=== PATIENT | male | born 2000 | race Caucasian/White ===

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

== ENCOUNTER 2021-10-09 00:56 | Emergency (ER) | payer OTHER, MEDICAID, SELFPAY ==
[2021-10-09] VITALS (8 sets, daily range): BP systolic 127–162; BP diastolic 74–95; PULSE 104–118; RESP 15–29; O2SAT 96–98; BMI 29.2
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
[2021-10-09] MEDS: HYDROmorphone 1 mg/mL INJ 1 mL IVP (01:22)
[2021-10-09 01:23] LABS: Basophils # 0.1 10^3/uL (0.0-0.1); Basophils % 0.8 %; Eosinophils # 0.3 10^3/uL (0.0-0.8); Eosinophils % 1.7 %; Hematocrit 47.8 % (42.0-52.0); Hemoglobin 15.8 g/dL (11.7-16.6); Lymphocytes # 6.7 10^3/uL (1.5-6.5); Lymphocytes % 39.1 %; Mean Corpuscular HGB Conc 33.1 g/dL (30.0-36.0); Mean Corpuscular Hemoglobin 28.8 pg (28.0-34.0); Mean Corpuscular Volume 87.2 fl (80-94); Mean Platelet Volume 11.3 fL (7.4-10.4); Monocytes # 0.7 10^3/uL (0.2-0.9); Monocytes % 4.3 %; Neutrophils % 50.1 %; Nucleated Red Blood Cells % 0 %; Platelet Count 346 10^3/cmm (130-400); Red Blood Count 5.48 10^6/uL (4.1-5.3); Red Cell Distribution Width 11.7 % (12.1-15.1); White Blood Count 17.2 10^3/uL (4.5-13.0)
[2021-10-09] MEDS: ondansetron 2 mg/ML SDV 2 mL 4 MG IVP (01:23)
[2021-10-09] MEDS: iohexol 300 mg/mL 100 mL Btl IV (01:30)
[2021-10-09 01:47] LABS: Alanine Aminotransferase 177 U/L (0-41); Albumin Level 4.5 g/dL (3.5-5.2); Alcohol Level 197 mg/dL (0-10); Alkaline Phosphatase 83 IU/L (40-130); Anion Gap 22.6 (5-19); Aspartate Amino Transferase 153 U/L (0-40); Blood Urea Nitrogen 15 mg/dL (6-20); Calcium 8.8 mg/dL (8.5-10.5); Carbon Dioxide 17 mmol/L (22-29); Chloride 105 mmol/L (98-107); Globulin 3.2 g/dL (1.3-4.6); Glomerular Filtration Rate 123.2 mL/min (90-130); Glucose 124 mg/dL (65-115); Osmolality Calculated 294 mOsm/kg (285-295); Potassium 3.6 mmol/L (3.5-5.1); Sodium 141 mmol/L (136-145); Total Bilirubin 0.2 mg/dL (0.15-1.2); Total Protein 7.7 g/dL (6.6-8.7)
[2021-10-09 02:05] LABS: Slide Review Slide Review Perform
[2021-10-09] MEDS: midazolam 1 mg/mL INJ 2 mL 2 MG IVP (02:45)
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
--- NOTE | 2021-10-09 04:01 | PC.NURSE ---
Pt. is now able to verbally respond to answer questions after sedation . pt. vitals are stable at this time and steps are being made to transfer patient to [facility]. Pt. wounds have been cleaned and addressed by the doctor.
[2021-10-09 04:42] LABS: Add Urine Microscopic? YES; Bilirubin Urine Neg (Negative); Blood Urine 3+ (Negative); Glucose Urine UA Norm (Normal); Ketones Urine Negative (Negative); Leukocyte Esterase Urine Negative (Negative); Nitrate Urine Negative (Negative); Protein Urine 1+ (Negative); Urine Appearance SL Hazy (CLEAR); Urine Color Yellow (Yellow); Urobilinogen Urine Norm (Negative); pH Urine 5 (5-7)
[2021-10-09 04:51] LABS: Amphetamines Screen Urine Negative (Negative); Barbiturates Screen Urine Negative (Negative); Benzodiazepines Screen Urine Negative (Negative); Cocaine Screen Urine Negative (Negative); Opiate Screen Urine Positive (Negative); PCP Screen Urine Negative (Negative); THC Screen Urine Positive (Negative)
[2021-10-09 04:56] LABS: Add Urine Culture? No; Amorphous Sediment Urine 2+ /hpf; Bacteria Urine TRACE /hpf; Hyaline Casts Urine 0-4 /lpf; Mucus Urine TRACE /hpf; Squamous Epithelial Cell Urine 0-4 /hpf (0-5); WBC Urine 0-4 /hpf (0-5)
--- NOTE | 2021-10-13 20:35 | PC.NURSE ---
Addendum entered by Arash Downs RN 10/13/21 20:37: previous note is late entry for clarification. Original Note: Dr. felton cleaned and prepped facial wounds for sutures. sutured lip and chin before transfer. Verbal order given to put tavera catheter in patient due to immobilization from hip dislocation.
== END 2021-10-09 05:08 ==
PROVIDERS: Emergency Provider Emergency Medicine
DX: S06.0X9A Concussion with loss of consciousness of unspecified duration, initial encounter (principal); S01.81XA Laceration without foreign body of other part of head, initial encounter; S73.004A Unspecified dislocation of right hip, initial encounter; S27.322A Contusion of lung, bilateral, initial encounter; I10 Essential (primary) hypertension; V49.9XXA Car occupant (driver) (passenger) injured in unspecified traffic accident, initial encounter
CPT/HCPCS: 27250; 51702; 70450; 70486; 71260; 72125; 73502; 74177; 80053; 80306; 80307; 81001; 85025; 96374; 96375; 99285; J1170; J2250; J2405; J3490; Q9967

== ENCOUNTER 2022-11-06 05:01 | Emergency (ER) | payer BC, MEDICAID, SELFPAY ==
[2022-11-06 05:05] VITALS: BP 143/104; PULSE 130; RESP 20; TEMP 36.7; O2SAT 95; BMI 31.4
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
--- NOTE | 2022-11-08 16:08 | DCPLANNER ---
TCM called patient due to no primary care physician - patient stated that he sees Dr. Castillo.
== END 2022-11-06 05:56 | disposition home or self-care (01) ==
PROVIDERS: Emergency Provider Emergency Medicine
DX: S01.81XA Laceration without foreign body of other part of head, initial encounter (principal); W18.39XA Other fall on same level, initial encounter; Y93.83 Activity, rough housing and horseplay; I10 Essential (primary) hypertension
CPT/HCPCS: 99282

== ENCOUNTER 2023-08-28 01:30 | Emergency (ER) | payer SELFPAY ==
[2023-08-28 01:31] VITALS: BP 144/100; PULSE 136; TEMP 36.7; O2SAT 96; BMI 27.8
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
== END 2023-08-28 05:25 | disposition home or self-care (01) ==
PROVIDERS: Emergency Provider Emergency Medicine
DX: F10.920 Alcohol use, unspecified with intoxication, uncomplicated (principal); I10 Essential (primary) hypertension
CPT/HCPCS: 99281